=== PATIENT | female | born 1990 | race Caucasian/White ===

== ENCOUNTER 2017-02-10 12:41 | Inpatient (IN) | payer MEDICAID, OTHER ==
[2017-02-10] VITALS (10 sets, daily range): BP systolic 81–111; BP diastolic 23–67
[~2017-02-10] VITALS: Ht 170.2 cm; Wt 75.4 kg
[~2017-02-10 12:41] MED LIST: GEODON; LAMOTRIGINE; MELOXICAM; SEROQUEL; TOPIRAMATE
[2017-02-10] MEDS: LORAZEPAM 2MG/ML CPJ IV PRN ×2 (13:55→14:39)
[2017-02-10 14:34] LABS: BASOPHILS % 0.6 % (0.0-2.0); EOSINOPHILS % 0.7 % (0.0-5.0); HEMATOCRIT. 30.7 % (36.0-48.0); HEMOGLOBIN. 10.2 g/dL (12.0-16.0); LYMPHOCYTES % 31.6 % (20.0-50.0); MEAN CORPUSCULAR HEMOGLOBIN 32.1 pg (28.0-32.0); MEAN CORPUSCULAR VOLUME 96.2 fL (81.0-99.0); MEAN PLATELET VOLUME 10.9 fl (7.4-10.4); MONOCYTES % 9.2 % (2.0-8.0); NEUTROPHILS % 57.9 % (40.0-76.0); PLATELET 152 x1000/uL (130-400); RED BLOOD CELL COUNT 3.19 mill/uL (4.2-5.4); RED CELL DISTRIBUTION WIDTH 13.3 % (11.6-14.6)
[2017-02-10 14:38] LABS: CHLORIDE 109 mEq/L (98-107)
[2017-02-10 14:54] LABS: CARBON DIOXIDE 24 mEq/L (21-32); ETHANOL BLOOD < 10 mg/dL
[2017-02-10] MEDS ORDERED: LEVETIRACETAM 500MG PREMIX 100 ML IV ONE (15:00)
[2017-02-10] MEDS ORDERED: GUAIFENESIN 200MG/10ML SUGAR FREE UDC PO PRN (18:15)
[2017-02-10] MEDS ORDERED: ACETAMINOPHEN 325MG TABLET PO PRN (18:15)
[2017-02-10] MEDS ORDERED: ONDANSETRON HCL 4MG/2ML VIAL IV PRN (18:15)
[2017-02-10] MEDS ORDERED: CLONIDINE 0.1MG TABLET PO PRN (18:15)
[2017-02-10] MEDS ORDERED: IPRATROPIUM/ALBUTEROL 0.5-3(2.5)MG/3ML NEB INH PRN (18:15)
[2017-02-10] MEDS ORDERED: ACETAMINOPHEN 650MG SUPP PR PRN (18:15)
[2017-02-10] MEDS ORDERED: HYDROCODONE/ACETAMINOPHEN 5/325MG TABLET PO PRN (18:15)
[2017-02-10] MEDS ORDERED: LORAZEPAM 2MG/ML CPJ IV PRN (18:15)
[2017-02-10] MEDS ORDERED: DIPHENHYDRAMINE 50MG/ML VIAL IV PRN (18:15)
[2017-02-10] MEDS ORDERED: MAGNESIUM/ALUMINUM HYDROXIDE/SIMETHICONE 30ML UDC PO PRN (18:15)
[2017-02-10] MEDS ORDERED: ACETAMINOPHEN 650MG/20.3ML UDC GT PRN (18:15)
[2017-02-10] MEDS ORDERED: NA PHOS,M-B/NA PHOS,DI-BA ENEMA 118ML PR PRN (18:15)
[2017-02-10] MEDS ORDERED: DOCUSATE SODIUM 100MG CAPSULE PO PRN (18:15)
[2017-02-10] MEDS: SODIUM CHLORIDE 0.9% 1,000 ML IV SCH (19:30)
[2017-02-10 20:52] LABS: BG BASE EXCESS -2.1 mmol/L (-2.0-2.0); BG CARBOXYHEMOGLOBIN 0.1 % (0.5-1.5); BG DEOXYHEMOGLOBIN 4.5 % (0.0-5.0); BG FRACTION INSPIRED OXYGEN 21; BG HCO3 ACT 21.9 mmol/L (22.0-26.0); BG METHEMOGLOBIN 0.3 % (0.0-1.5); BG OXYGEN SATURATION 95.5 % (92.0-98.5); BG OXYHEMOGLOBIN 95.1 % (94.0-97.0); BG PCO2 34.9 mmHg (35.0-45.0); BG PH 7.416 (7.350-7.450); BG PO2 87.1 mmHg (75.0-100.0); BG SAMPLE SITE RIGHT RADIAL; BG TOTAL HEMOGLOBIN 10.7 g/dL (12.0-18.0); BG VENT MODE ROOM AIR
[2017-02-10] MEDS: LEVETIRACETAM 500 MG in SODIUM CHLORIDE 0.9% 100 ML IV SCH (21:12)
[2017-02-10] MEDS: SODIUM CHLORIDE 0.9% INJ 3ML FLUSH IVF SCH (22:00)
[2017-02-10 22:12] LABS: CREATINE KINASE 42 IU/L (26-192); TROPONIN I < 0.02 ng/mL (0.00-0.04)
[2017-02-10] MEDS ORDERED: DIVA-18 PO (22:36)
[2017-02-10] MEDS ORDERED: TH50 GT (22:36)
[2017-02-10] MEDS ORDERED: SERT50TA PO (22:36)
[2017-02-10] MEDS ORDERED: TOPA25 PO (22:36)
[2017-02-10] MEDS ORDERED: BENZ1TAB7 PO (22:36)
[2017-02-10] MEDS ORDERED: CHLO100T25 GT (22:36)
[2017-02-10] MEDS ORDERED: GUAN1TAB PO (22:36)
[2017-02-10] MEDS ORDERED: KEPP500 PO ×2 (22:36)
[2017-02-10] MEDS ORDERED: TRAZ150T79 PO (22:36)
[2017-02-11] VITALS (46 sets, daily range): BP systolic 86–133; BP diastolic 47–96
[2017-02-11] MEDS: SODIUM CHLORIDE 0.9% INJ 3ML FLUSH IVF SCH ×3 (06:00→21:39)
[2017-02-11 06:08] LABS: CREATINE KINASE 67 IU/L (26-192); TROPONIN I < 0.02 ng/mL (0.00-0.04)
[2017-02-11] MEDS: LEVETIRACETAM 500 MG in SODIUM CHLORIDE 0.9% 100 ML IV SCH (08:29)
[2017-02-11] MEDS ORDERED: CHLORPROMAZINE HCL 50 MG GT SCH (09:00)
[2017-02-11] MEDS ORDERED: DIVALPROEX SODIUM 500MG DR TABLET PO SCH (09:00)
[2017-02-11] MEDS: BENZTROPINE MESYLATE 1MG TABLET PO SCH ×2 (09:51→16:38)
[2017-02-11] MEDS: SODIUM CHLORIDE 0.9% 1,000 ML IV SCH ×2 (09:51→21:39)
[2017-02-11 11:00] LABS: HEMATOCRIT. 32.9 % (36.0-48.0); HEMOGLOBIN. 11.2 g/dL (12.0-16.0); MEAN CORPUSCULAR HEMOGLOBIN 32.3 pg (28.0-32.0); MEAN CORPUSCULAR VOLUME 94.8 fL (81.0-99.0); MEAN PLATELET VOLUME 10.6 fl (7.4-10.4); PLATELET 197 x1000/uL (130-400); RED BLOOD CELL COUNT 3.47 mill/uL (4.2-5.4); RED CELL DISTRIBUTION WIDTH 13.3 % (11.6-14.6)
[2017-02-11 11:16] LABS: CLARITY URINE CLEAR (CLEAR); COLOR URINE YELLOW (YELLOW); GLUCOSE URINE NEGATIVE (NEGATIVE); KETONES URINE NEGATIVE (NEGATIVE); LEUKOCYTE ESTERASE URINE NEGATIVE (NEGATIVE); NITRITE URINE NEGATIVE (NEGATIVE); OCCULT BLOOD URINE NEGATIVE (NEGATIVE); PH URINE 7.5 (4.5-8.0); PROTEIN URINE NEGATIVE (NEGATIVE); SPECIFIC GRAVITY URINE 1.013 (1.005-1.030); UROBILINOGEN URINE 0.2 E.U./dL (0.2-1.0)
[2017-02-11] MEDS: CHLORPROMAZINE HCL 25 MG TABLET GT SCH ×3 (11:26→23:31)
[2017-02-11 11:42] LABS: CARBON DIOXIDE 23 mEq/L (21-32); CHLORIDE 109 mEq/L (98-107)
[2017-02-11 11:50] LABS: *AMPHETAMINES SCREEN URINE NEGATIVE (NEGATIVE); *BARBITURATES SCREEN URINE NEGATIVE (NEGATIVE); *COCAINE SCREEN URINE NEGATIVE (NEGATIVE); CANNABINOID URINE SCREEN NEGATIVE (NEGATIVE); METHADONE URINE SCREEN NEGATIVE (NEGATIVE); OPIATES URINE SCREEN NEGATIVE (NEGATIVE); PHENCYCLIDINE URINE SCREEN NEGATIVE (NEGATIVE)
[2017-02-11 12:01] LABS: PLATELET ESTIMATE NORMAL
[2017-02-11 12:19] LABS: *BENZODIAZEPINES SCREEN URINE PRESUMTIVE POSITIVE (NEGATIVE)
[2017-02-11] MEDS: LORAZEPAM 2MG/ML CPJ IV PRN (13:19)
[2017-02-11] MEDS: LAMOTRIGINE 25MG TABLET PO SCH (16:38)
[2017-02-11 19:56] LABS: HCG SCREEN NEGATIVE
[2017-02-11] MEDS ORDERED: CHLORPROMAZINE HCL 100 MG GT SCH (21:00)
[2017-02-11] MEDS ORDERED: LEVETIRACETAM 500MG TABLET PO SCH (21:00)
[2017-02-11] MEDS ORDERED: TOPIRAMATE 25MG TABLET PO SCH (21:00)
[2017-02-11] MEDS: LEVETIRACETAM 500MG TABLET PO SCH (21:38)
[2017-02-12] VITALS (33 sets, daily range): BP systolic 92–140; BP diastolic 42–123
[2017-02-12] MEDS: GUANFACINE HCL 1MG TABLET PO SCH (06:30)
[2017-02-12] MEDS ORDERED: LEVETIRACETAM 500MG TABLET PO SCH (06:30)
[2017-02-12] MEDS: SERTRALINE HCL 50MG TABLET PO SCH (06:54)
[2017-02-12] MEDS: BENZTROPINE MESYLATE 1MG TABLET PO SCH ×2 (09:37→17:23)
[2017-02-12] MEDS: CHLORPROMAZINE HCL 25 MG TABLET GT SCH ×3 (09:37→21:11)
[2017-02-12] MEDS: LEVETIRACETAM 500MG TABLET PO SCH ×2 (09:37→21:12)
[2017-02-12] MEDS: LAMOTRIGINE 25MG TABLET PO SCH (09:37)
[2017-02-12] MEDS: SODIUM CHLORIDE 0.9% 1,000 ML IV SCH (12:23)
[2017-02-12] MEDS: SODIUM CHLORIDE 0.9% INJ 3ML FLUSH IVF SCH ×2 (14:00→21:12)
[2017-02-13] VITALS (37 sets, daily range): BP systolic 86–148; BP diastolic 46–98
[2017-02-13] MEDS: SODIUM CHLORIDE 0.9% 1,000 ML IV SCH (01:33)
[2017-02-13] MEDS: SODIUM CHLORIDE 0.9% INJ 3ML FLUSH IVF SCH ×3 (06:00→22:34)
[2017-02-13] MEDS: GUANFACINE HCL 1MG TABLET PO SCH (06:30)
[2017-02-13] MEDS: SERTRALINE HCL 50MG TABLET PO SCH (06:53)
[2017-02-13 07:26] LABS: CARBON DIOXIDE 23 mEq/L (21-32); CHLORIDE 112 mEq/L (98-107)
[2017-02-13] MEDS ORDERED: NA PHOS,M-B/NA PHOS,DI-BA ENEMA 118ML PR SCH (07:30)
[2017-02-13 07:40] LABS: BASOPHILS % 0.3 % (0.0-2.0); EOSINOPHILS % 1.1 % (0.0-5.0); HEMATOCRIT. 30.4 % (36.0-48.0); HEMOGLOBIN. 10.2 g/dL (12.0-16.0); LYMPHOCYTES % 36.9 % (20.0-50.0); MEAN CORPUSCULAR HEMOGLOBIN 32.4 pg (28.0-32.0); MEAN PLATELET VOLUME 10.9 fl (7.4-10.4); MONOCYTES % 10.6 % (2.0-8.0); NEUTROPHILS % 51.1 % (40.0-76.0); PLATELET 183 x1000/uL (130-400); RED BLOOD CELL COUNT 3.13 mill/uL (4.2-5.4); RED CELL DISTRIBUTION WIDTH 13.6 % (11.6-14.6)
[2017-02-13] MEDS: CHLORPROMAZINE HCL 25 MG TABLET GT SCH ×3 (09:30→21:01)
[2017-02-13] MEDS: LEVETIRACETAM 500MG TABLET PO SCH ×2 (09:30→21:01)
[2017-02-13] MEDS: LAMOTRIGINE 25MG TABLET PO SCH (09:30)
[2017-02-13] MEDS: BENZTROPINE MESYLATE 1MG TABLET PO SCH ×2 (09:30→16:29)
[2017-02-13] MEDS ORDERED: DIVALPROEX SODIUM 500MG ER TABLET PO SCH (17:00)
[2017-02-13] MEDS ORDERED: MIDODRINE HCL 2.5MG TABLET PO SCH (21:15)
== END 2017-02-13 23:56 | disposition short-term general hospital (02) | DRG 53 ==
LOC: ER 13:06 → 6WST 15:07 → ENRESERV 15:44 → MICUNO 18:37
PROVIDERS: ADMIT Family Medicine; ATTEND Family Medicine
DX: G40.901 Epilepsy, unspecified, not intractable, with status epilepticus (principal); E88.09 Other disorders of plasma-protein metabolism, not elsewhere classified; M54.5 Low back pain; D63.8 Anemia in other chronic diseases classified elsewhere; F79 Unspecified intellectual disabilities; G89.29 Other chronic pain; Z88.0 Allergy status to penicillin; Z79.899 Other long term (current) drug therapy
CPT/HCPCS: 36415; 36600; 70450; 72100; 80053; 80165; 80185; 80305; 81003; 81025; 82375; 82542; 82550; 82805; 84484; 84703; 85025; 96365; 96375; 97163; 99285; A6261; G0482; J1953; J2060; J7030; J7050; Q0161

== ENCOUNTER 2018-04-22 15:11 | Inpatient (IN) | payer MEDICAID ==
[~2018-04-22] VITALS: Ht 152.4 cm; Wt 54.9 kg
[~2018-04-22 15:11] MED LIST changes: +BENZ1TAB7 PO; +CHLO100T25 GT; +DIVA-18 PO; +GUAN1TAB PO; +KEPP500 PO; +SERT50TA PO; +TH50 GT; +TOPA25 PO; +TRAZ150T79 PO
[2018-04-22] MEDS ORDERED: SODIUM CHLORIDE 0.9% 1,000 ML IV ONE ×2 (15:51→18:30)
[2018-04-22] MEDS ORDERED: LORAZEPAM 2MG/ML CPJ IV ONE (16:15)
[2018-04-22] MEDS ORDERED: LORAZEPAM 2MG/ML CPJ ONE (16:19)
[2018-04-22 16:47] LABS: BASOPHILS % 0.8 % (0.0-2.0); HEMATOCRIT. 32.9 % (36.0-48.0); HEMOGLOBIN. 10.6 g/dL (12.0-16.0); LYMPHOCYTES % 21.9 % (20.0-50.0); MEAN CORPUSCULAR HEMOGLOBIN 28.3 pg (28.0-32.0); MEAN CORPUSCULAR VOLUME 87.7 fL (81.0-99.0); MEAN PLATELET VOLUME 11.7 fl (7.4-10.4); MONOCYTES % 5.6 % (2.0-8.0); NEUTROPHILS % 69.7 % (40.0-76.0); PLATELET 303 x1000/uL (130-400); RED BLOOD CELL COUNT 3.75 mill/uL (4.2-5.4); RED CELL DISTRIBUTION WIDTH 15.3 % (11.6-14.6)
[2018-04-22 16:52] LABS: CHLORIDE 111 mEq/L (98-107)
[2018-04-22 18:02] LABS: CLARITY URINE CLEAR (CLEAR); COLOR URINE YELLOW (YELLOW); KETONES URINE NEGATIVE (NEGATIVE); LEUKOCYTE ESTERASE URINE NEGATIVE (NEGATIVE); NITRITE URINE NEGATIVE (NEGATIVE); OCCULT BLOOD URINE 2+ (NEGATIVE); PROTEIN URINE NEGATIVE (NEGATIVE); SPECIFIC GRAVITY URINE 1.018 (1.005-1.030); UROBILINOGEN URINE 0.2 E.U./dL (0.2-1.0)
[2018-04-22] MEDS ORDERED: KETOROLAC 15MG/ML VIAL IV ONE (20:00)
[2018-04-22 21:00] VITALS: BP 103/50
[2018-04-22 23:33] VITALS: BP 80/39
[2018-04-23] VITALS: BP 77/39
[2018-04-23] MEDS ORDERED: TRAZODONE HCL 50MG TABLET PO PRN (00:45)
[2018-04-23] MEDS ORDERED: ABIL10 PO (01:14)
[2018-04-23] MEDS ORDERED: CLONAZEPAM 0.5MG TABLET PO PRN (01:45)
[2018-04-23] MEDS: SODIUM CHLORIDE 0.9% 1,000 ML IV SCH ×3 (02:05→21:51)
[2018-04-23] MEDS ORDERED: PRAZ2CAP2 PO (02:46)
[2018-04-23] MEDS ORDERED: TOPI200T15 PO (02:46)
[2018-04-23] MEDS ORDERED: LEVE10006 PO (02:46)
[2018-04-23] MEDS ORDERED: BECL10.62 IH (02:46)
[2018-04-23] MEDS ORDERED: SERT-112 PO (02:46)
[2018-04-23] MEDS ORDERED: MIDO5TAB PO (02:46)
[2018-04-23] MEDS ORDERED: FAMO20TA8 PO (02:46)
[2018-04-23] MEDS ORDERED: CLON0.5T12 PO (02:46)
[2018-04-23] MEDS ORDERED: QUET100T33 PO (02:46)
[2018-04-23] MEDS ORDERED: TRAZ-212 PO (02:46)
[2018-04-23] MEDS ORDERED: BUSP10TA3 PO (02:46)
[2018-04-23] MEDS ORDERED: LITH600C PO (02:46)
[2018-04-23 04:00] VITALS: BP 90/40
[2018-04-23] MEDS ORDERED: LORAZEPAM 2MG/ML CPJ IV PRN (04:00)
[2018-04-23 08:00] VITALS: BP 107/54
[2018-04-23] MEDS ORDERED: LEVETIRACETAM 500MG TABLET PO SCH (09:00)
[2018-04-23] MEDS ORDERED: INFLUENZA VIRUS VACCINE(AFLURIA) 0.5ML SYR IM ONE (10:00)
[2018-04-23] MEDS: BENZTROPINE MESYLATE 1MG TABLET PO SCH ×2 (10:49→18:29)
[2018-04-23] MEDS: SERTRALINE HCL 100MG TABLET PO SCH (10:49)
[2018-04-23] MEDS: BUSPIRONE HCL 10MG TABLET PO SCH ×3 (10:49→18:29)
[2018-04-23] MEDS: FAMOTIDINE 20MG TABLET PO SCH ×2 (10:49→18:28)
[2018-04-23] MEDS: MIDODRINE HCL 5MG TABLET PO SCH ×2 (10:50→18:28)
[2018-04-23] MEDS: TOPIRAMATE 100MG TABLET PO SCH ×2 (10:51→18:28)
[2018-04-23] MEDS ORDERED: LEVETIRACETAM 500 MG in SODIUM CHLORIDE 0.9% 100 ML IV SCH (11:30)
[2018-04-23 12:00] VITALS: BP 113/61
[2018-04-23 16:00] VITALS: BP 106/56
[2018-04-23 20:00] VITALS: BP 108/52
[2018-04-23] MEDS: LORAZEPAM 2MG/ML CPJ IV PRN (20:04)
[2018-04-23] MEDS: LEVETIRACETAM 1,500 MG in SODIUM CHLORIDE 0.9% 100 ML IV SCH (20:50)
[2018-04-23] MEDS ORDERED: NON FORMULARY PATIENT HOME MED EA PO SCH (21:00)
[2018-04-23] MEDS ORDERED: LITHIUM CARBONATE 150 MG CAPSULE PO SCH (21:00)
[2018-04-23] MEDS ORDERED: ARIPIPRAZOLE 5MG TABLET PO SCH (21:00)
[2018-04-23] MEDS ORDERED: QUETIAPINE FUMARATE 100MG TABLET PO SCH (21:00)
[2018-04-23] MEDS: ACETAMINOPHEN 325MG TABLET PO PRN (21:51)
[2018-04-24] VITALS (7 sets, daily range): BP systolic 91–114; BP diastolic 37–67
[2018-04-24 06:24] LABS: CHLORIDE 116 mEq/L (98-107)
[2018-04-24 06:29] LABS: BASOPHILS % 0.6 % (0.0-2.0); EOSINOPHILS % 2.2 % (0.0-5.0); HEMATOCRIT. 30.7 % (36.0-48.0); HEMOGLOBIN. 10.1 g/dL (12.0-16.0); LYMPHOCYTES % 27.6 % (20.0-50.0); MEAN CORPUSCULAR HEMOGLOBIN 28.8 pg (28.0-32.0); MEAN CORPUSCULAR VOLUME 87.4 fL (81.0-99.0); MEAN PLATELET VOLUME 11.3 fl (7.4-10.4); MONOCYTES % 8.9 % (2.0-8.0); NEUTROPHILS % 60.7 % (40.0-76.0); PLATELET 251 x1000/uL (130-400); RED BLOOD CELL COUNT 3.51 mill/uL (4.2-5.4); RED CELL DISTRIBUTION WIDTH 15.3 % (11.6-14.6)
[2018-04-24] MEDS: LORAZEPAM 2MG/ML CPJ IV PRN (06:42)
[2018-04-24] MEDS: SODIUM CHLORIDE 0.9% 1,000 ML IV SCH ×2 (08:30→18:30)
[2018-04-24] MEDS: SERTRALINE HCL 100MG TABLET PO SCH (09:00)
[2018-04-24] MEDS: BENZTROPINE MESYLATE 1MG TABLET PO SCH ×2 (09:00→17:36)
[2018-04-24] MEDS: TOPIRAMATE 100MG TABLET PO SCH ×2 (09:00→17:36)
[2018-04-24] MEDS: LEVETIRACETAM 1,500 MG in SODIUM CHLORIDE 0.9% 100 ML IV SCH (09:00)
[2018-04-24] MEDS: MIDODRINE HCL 5MG TABLET PO SCH ×2 (09:00→17:36)
[2018-04-24] MEDS: FAMOTIDINE 20MG TABLET PO SCH ×2 (09:00→17:36)
[2018-04-24] MEDS: BUSPIRONE HCL 10MG TABLET PO SCH ×3 (09:00→17:38)
[2018-04-24] MEDS ORDERED: MIDODRINE HCL 2.5MG TABLET PO SCH (10:00)
[2018-04-24] MEDS: ACETAMINOPHEN 325MG TABLET PO PRN (18:17)
== END 2018-04-24 21:15 | disposition short-term general hospital (02) | DRG 53 ==
LOC: ER 15:11 → 5WST 18:55 → ENRESERV 20:07
PROVIDERS: ADMIT Internal Medicine; ATTEND Internal Medicine
DX: G40.419 Other generalized epilepsy and epileptic syndromes, intractable, without status epilepticus (principal); E87.8 Other disorders of electrolyte and fluid balance, not elsewhere classified; G80.9 Cerebral palsy, unspecified; F79 Unspecified intellectual disabilities; D64.9 Anemia, unspecified; Z88.0 Allergy status to penicillin; Z79.899 Other long term (current) drug therapy
CPT/HCPCS: 36415; 71045; 80048; 80178; 82542; 96361; 96374; 96375; 99285; C1893; J1885; J1953; J2060; J7030; J7050

== ENCOUNTER 2018-05-01 11:30 | Emergency (ER) | payer MEDICAID ==
[~2018-05-01] VITALS: Ht 162.6 cm; Wt 55.0 kg
[~2018-05-01 11:30] MED LIST changes: +ABIL10 PO; +BECL10.62 IH; +BUSP10TA3 PO; -CHLO100T25 GT; +CLON0.5T12 PO; -DIVA-18 PO; +FAMO20TA8 PO; -GEODON; -KEPP500 PO; -LAMOTRIGINE; +LEVE10006 PO; +LITH600C PO; -MELOXICAM; +MIDO5TAB PO; +PRAZ2CAP2 PO; +QUET100T33 PO; -SEROQUEL; +SERT-112 PO; -SERT50TA PO; -TH50 GT; -TOPA25 PO; +TOPI200T15 PO; -TOPIRAMATE; +TRAZ-212 PO; -TRAZ150T79 PO
[2018-05-01] MEDS ORDERED: LEVETIRACETAM 1000MG/100ML 100 ML IV ONE (12:00)
[2018-05-01 12:28] LABS: BASOPHILS % 0.4 % (0.0-2.0); EOSINOPHILS % 2.2 % (0.0-5.0); HEMATOCRIT. 36.3 % (36.0-48.0); LYMPHOCYTES % 23.8 % (20.0-50.0); MEAN CORPUSCULAR HEMOGLOBIN 28.5 pg (28.0-32.0); MEAN CORPUSCULAR VOLUME 86.3 fL (81.0-99.0); MEAN PLATELET VOLUME 10.6 fl (7.4-10.4); MONOCYTES % 5.5 % (2.0-8.0); NEUTROPHILS % 68.1 % (40.0-76.0); PLATELET 301 x1000/uL (130-400); RED BLOOD CELL COUNT 4.21 mill/uL (4.2-5.4); RED CELL DISTRIBUTION WIDTH 14.5 % (11.6-14.6)
[2018-05-01 12:34] LABS: CHLORIDE 107 mEq/L (98-107)
[2018-05-01 12:42] LABS: ETHANOL BLOOD < 10 mg/dL
[2018-05-01 12:46] LABS: CLARITY URINE CLOUDY (CLEAR); COLOR URINE YELLOW (YELLOW); KETONES URINE NEGATIVE (NEGATIVE); LEUKOCYTE ESTERASE URINE TRACE (NEGATIVE); NITRITE URINE NEGATIVE (NEGATIVE); OCCULT BLOOD URINE NEGATIVE (NEGATIVE); PROTEIN URINE NEGATIVE (NEGATIVE); SPECIFIC GRAVITY URINE 1.014 (1.005-1.030); UROBILINOGEN URINE 0.2 E.U./dL (0.2-1.0)
[2018-05-01 12:52] LABS: HCG SCREEN NEGATIVE
[2018-05-01 14:03] LABS: METHADONE URINE SCREEN NEGATIVE (NEGATIVE); OPIATES URINE SCREEN NEGATIVE (NEGATIVE)
[2018-05-01 14:05] LABS: *BARBITURATES SCREEN URINE NEGATIVE (NEGATIVE); PHENCYCLIDINE URINE SCREEN NEGATIVE (NEGATIVE)
[2018-05-01 14:10] LABS: CANNABINOID URINE SCREEN NEGATIVE (NEGATIVE)
[2018-05-01 14:18] LABS: *AMPHETAMINES SCREEN URINE NEGATIVE (NEGATIVE)
[2018-05-01 14:20] LABS: *COCAINE SCREEN URINE NEGATIVE (NEGATIVE)
[2018-05-01 14:25] LABS: *BENZODIAZEPINES SCREEN URINE PRESUMTIVE POSITIVE (NEGATIVE)
[2018-05-01 15:06] VITALS: BP 108/62
== END 2018-05-01 15:32 | disposition home or self-care (01) ==
LOC: ER 11:45
DX: R56.9 Unspecified convulsions (principal); Z79.899 Other long term (current) drug therapy; Z88.0 Allergy status to penicillin
CPT/HCPCS: 36415; 80053; 80305; 81003; 82962; 84703; 85025; 96365; 99283; G0482; J1953; C1893

== ENCOUNTER 2018-05-20 16:16 | Emergency (ER) | payer MEDICAID ==
[~2018-05-20] VITALS: Ht 162.6 cm; Wt 60.0 kg
[2018-05-20] MEDS ORDERED: SODIUM CHLORIDE 0.9% 1,000 ML IV ONE (16:33)
[2018-05-20 17:14] LABS: BASOPHILS % 0.8 % (0.0-2.0); EOSINOPHILS % 3.1 % (0.0-5.0); HEMATOCRIT. 31.5 % (36.0-48.0); HEMOGLOBIN. 10.3 g/dL (12.0-16.0); LYMPHOCYTES % 27.4 % (20.0-50.0); MEAN CORPUSCULAR HEMOGLOBIN 28.1 pg (28.0-32.0); MEAN CORPUSCULAR VOLUME 86.5 fL (81.0-99.0); MEAN PLATELET VOLUME 9.8 fl (7.4-10.4); MONOCYTES % 7.2 % (2.0-8.0); NEUTROPHILS % 61.5 % (40.0-76.0); PLATELET 312 x1000/uL (130-400); RED BLOOD CELL COUNT 3.64 mill/uL (4.2-5.4); RED CELL DISTRIBUTION WIDTH 14.8 % (11.6-14.6)
[2018-05-20 17:21] LABS: CHLORIDE 112 mEq/L (98-107)
[2018-05-20 18:35] LABS: CLARITY URINE CLEAR (CLEAR); COLOR URINE YELLOW (YELLOW); KETONES URINE NEGATIVE (NEGATIVE); LEUKOCYTE ESTERASE URINE NEGATIVE (NEGATIVE); NITRITE URINE NEGATIVE (NEGATIVE); OCCULT BLOOD URINE NEGATIVE (NEGATIVE); PH URINE 6.5 (4.5-8.0); PROTEIN URINE NEGATIVE (NEGATIVE); SPECIFIC GRAVITY URINE 1.016 (1.005-1.030); UROBILINOGEN URINE 0.2 E.U./dL (0.2-1.0)
[2018-05-20] MEDS ORDERED: IBUPROFEN 600MG TABLET PO ONE (19:15)
[2018-05-21 08:18] VITALS: BP 103/59
== END 2018-05-21 08:29 | disposition home or self-care (01) ==
LOC: ER 16:16
DX: M79.18 Myalgia, other site (principal); R10.0 Acute abdomen
CPT/HCPCS: 36415; 80053; 81003; 81025; 83605; 85025; 85610; 87804; 99283; J7030

== ENCOUNTER 2022-03-03 09:00 | Emergency (ER) | payer MEDICAID ==
[~2022-03-03] VITALS: Ht 160 cm; Wt 72.0 kg
[~2022-03-03 09:00] MED LIST changes: -CLON0.5T12 PO; +CLON0.5T4 PO; -MIDO5TAB PO; +MIDO5TAB4 PO; -QUET100T33 PO; +QUET100T34 PO; -TRAZ-212 PO; +TRAZ-251 PO
[2022-03-03] MEDS ORDERED: KETOROLAC 30MG/ML VIAL IV STA (09:19)
[2022-03-03] MEDS ORDERED: ONDANSETRON HCL 4MG/2ML INJ IV STA (09:19)
[2022-03-03 10:07] LABS: HEMATOCRIT. 37.6 % (36.0-48.0); MEAN CORPUSCULAR VOLUME 97.3 fL (81.0-99.0); MEAN PLATELET VOLUME 10.8 fl (7.4-10.4); PLATELET 221 x1000/uL (130-400); RED BLOOD CELL COUNT 3.87 mill/uL (4.2-5.4)
[2022-03-03 10:15] LABS: CHLORIDE 112 mEq/L (98-107)
[2022-03-03 10:17] LABS: PROTHROMBIN TIME 10.5 sec (9.6-11.0)
[2022-03-03 10:23] LABS: ETHANOL BLOOD < 10 mg/dL
[2022-03-03 10:25] LABS: CLARITY URINE CLEAR (CLEAR); COLOR URINE ORANGE (YELLOW); KETONES URINE NEGATIVE (NEGATIVE); LEUKOCYTE ESTERASE URINE NEGATIVE (NEGATIVE); NITRITE URINE NEGATIVE (NEGATIVE); OCCULT BLOOD URINE NEGATIVE (NEGATIVE); PH URINE 6.5 (4.5-8.0); PROTEIN URINE NEGATIVE (NEGATIVE); SPECIFIC GRAVITY URINE 1.021 (1.005-1.030); UROBILINOGEN URINE 0.2 E.U./dL (0.2-1.0)
[2022-03-03 10:28] LABS: HCG SCREEN NEGATIVE
[2022-03-03 10:29] LABS: PLATELET ESTIMATE NORMAL
[2022-03-03] MEDS ORDERED: PIPERACILLIN/TAZ 3.375G PREMIX 50 ML IV ONE (10:45)
[2022-03-03] MEDS ORDERED: VANCOMYCIN 1G PREMIX 200 ML IV ONE (10:45)
[2022-03-03 10:48] LABS: *AMPHETAMINES SCREEN URINE NEGATIVE (NEGATIVE); *BARBITURATES SCREEN URINE NEGATIVE (NEGATIVE); *BENZODIAZEPINES SCREEN URINE NEGATIVE (NEGATIVE); *COCAINE SCREEN URINE NEGATIVE (NEGATIVE); CANNABINOID URINE SCREEN NEGATIVE (NEGATIVE); METHADONE URINE SCREEN NEGATIVE (NEGATIVE); OPIATES URINE SCREEN NEGATIVE (NEGATIVE); PHENCYCLIDINE URINE SCREEN NEGATIVE (NEGATIVE)
[2022-03-03] MEDS ORDERED: MORPHINE SULFATE 4 MG/ML CPJ (NOT FOR IM USE) IV ONE (12:30)
[2022-03-03] MEDS ORDERED: SODIUM CHLORIDE 0.9% 1,000 ML IV ONE (14:00)
[2022-03-03 14:55] VITALS: BP 108/60
== END 2022-03-03 15:16 | disposition short-term general hospital (02) ==
LOC: ER 09:00 → CANBEDREQ 13:30 → ER 15:16
DX: R10.84 Generalized abdominal pain (principal); I88.0 Nonspecific mesenteric lymphadenitis; F31.9 Bipolar disorder, unspecified; E11.9 Type 2 diabetes mellitus without complications; G40.909 Epilepsy, unspecified, not intractable, without status epilepticus; F99 Mental disorder, not otherwise specified; Z20.822 Contact with and (suspected) exposure to COVID-19; Z88.0 Allergy status to penicillin
CPT/HCPCS: 36415; 74176; 80053; 80305; 80320; 81003; 83605; 83690; 84703; 85025; 85610; 87040; 87426; 96365; 96367; 96375; 99285; C9803; J1885; J2405; J2543; J3370; J7030; G0480

== ENCOUNTER 2022-04-06 19:21 | Emergency (ER) | payer MEDICAID ==
[~2022-04-06] VITALS: Ht 167.6 cm; Wt 64.0 kg
[2022-04-06 20:33] LABS: HEMATOCRIT. 33.3 % (36.0-48.0); HEMOGLOBIN. 11.3 g/dL (12.0-16.0); MEAN CORPUSCULAR HEMOGLOBIN 31.9 pg (28.0-32.0); MEAN CORPUSCULAR VOLUME 94.1 fL (81.0-99.0); MEAN PLATELET VOLUME 10.3 fl (7.4-10.4); PLATELET 238 x1000/uL (130-400); RED BLOOD CELL COUNT 3.54 mill/uL (4.2-5.4); RED CELL DISTRIBUTION WIDTH 15.4 % (11.6-14.6)
[2022-04-06 20:41] LABS: CHLORIDE 106 mEq/L (98-107)
[2022-04-06 20:42] LABS: HCG SCREEN NEGATIVE
[2022-04-06 20:48] LABS: ETHANOL BLOOD < 10 mg/dL
[2022-04-06] MEDS ORDERED: TOPIRAMATE 25MG TABLET PO NR (21:00)
[2022-04-06 21:16] LABS: CLARITY URINE CLOUDY (CLEAR); COLOR URINE ORANGE (YELLOW); KETONES URINE NEGATIVE (NEGATIVE); LEUKOCYTE ESTERASE URINE 2+ (NEGATIVE); NITRITE URINE POSITIVE (NEGATIVE); OCCULT BLOOD URINE TRACE (NEGATIVE); PH URINE 5.5 (4.5-8.0); PROTEIN URINE TRACE (NEGATIVE); SPECIFIC GRAVITY URINE 1.028 (1.005-1.030); UROBILINOGEN URINE 0.2 E.U./dL (0.2-1.0)
[2022-04-06] MEDS ORDERED: NITR-87 MT (21:22)
[2022-04-06] MEDS ORDERED: NITROFURANTOIN 100MG M/M CAPSULE PO ONE (21:30)
[2022-04-06 21:43] LABS: *AMPHETAMINES SCREEN URINE NEGATIVE (NEGATIVE); *BARBITURATES SCREEN URINE NEGATIVE (NEGATIVE); *COCAINE SCREEN URINE NEGATIVE (NEGATIVE); CANNABINOID URINE SCREEN NEGATIVE (NEGATIVE); METHADONE URINE SCREEN NEGATIVE (NEGATIVE); OPIATES URINE SCREEN NEGATIVE (NEGATIVE); PHENCYCLIDINE URINE SCREEN NEGATIVE (NEGATIVE)
[2022-04-06 21:54] LABS: *BENZODIAZEPINES SCREEN URINE PRESUMTIVE POSITIVE (NEGATIVE)
[2022-04-06 22:03] LABS: PLATELET ESTIMATE NORMAL
[2022-04-06 23:30] VITALS: BP 95/56
== END 2022-04-07 00:15 | disposition home or self-care (01) ==
LOC: ER 19:31
DX: G40.909 Epilepsy, unspecified, not intractable, without status epilepticus (principal); N39.0 Urinary tract infection, site not specified; R74.01 Elevation of levels of liver transaminase levels; E11.9 Type 2 diabetes mellitus without complications; F31.9 Bipolar disorder, unspecified; Z88.0 Allergy status to penicillin
CPT/HCPCS: 36415; 80053; 80305; 80320; 81003; 82962; 84703; 85025; 93005; 99284; G0480

== ENCOUNTER 2022-04-07 14:06 | Emergency (ER) | payer MEDICAID ==
[~2022-04-07] VITALS: Ht 170.2 cm; Wt 75.0 kg
[~2022-04-07 14:06] MED LIST changes: +NITR-87 MT
[2022-04-07] MEDS ORDERED: ACETAMINOPHEN 325MG TABLET PO STA (14:17)
[2022-04-07] MEDS ORDERED: LEVETIRACETAM 500MG PREMIX 100 ML IV ONE (14:30)
[2022-04-07] MEDS ORDERED: SODIUM CHLORIDE 0.9% 1,000 ML IV ONE (14:30)
[2022-04-07 15:04] LABS: HCG SCREEN NEGATIVE
[2022-04-07 15:05] LABS: CHLORIDE 105 mEq/L (98-107)
[2022-04-07 15:06] LABS: BASOPHILS % 0.3 % (0.0-2.0); EOSINOPHILS % 0.7 % (0.0-5.0); HEMOGLOBIN. 12.1 g/dL (12.0-16.0); LYMPHOCYTES % 31.8 % (20.0-50.0); MEAN CORPUSCULAR HEMOGLOBIN 31.8 pg (28.0-32.0); MEAN CORPUSCULAR VOLUME 94.5 fL (81.0-99.0); MEAN PLATELET VOLUME 10.8 fl (7.4-10.4); MONOCYTES % 12.8 % (2.0-8.0); NEUTROPHILS % 54.4 % (40.0-76.0); PLATELET 242 x1000/uL (130-400); RED BLOOD CELL COUNT 3.81 mill/uL (4.2-5.4); RED CELL DISTRIBUTION WIDTH 15.4 % (11.6-14.6)
[2022-04-07 15:13] LABS: PARTIAL THROMBOPLASTIN TIME 24.8 sec (23.4-31.0); PROTHROMBIN TIME 10.9 sec (9.6-11.0)
[2022-04-07 15:38] LABS: ETHANOL BLOOD < 10 mg/dL
[2022-04-07] MEDS ORDERED: LEVOFLOXACIN 750MG PREMIX 150 ML IV ONE (16:45)
[2022-04-07 17:41] LABS: CLARITY URINE TURBID (CLEAR); COLOR URINE ORANGE (YELLOW); KETONES URINE NEGATIVE (NEGATIVE); LEUKOCYTE ESTERASE URINE TRACE (NEGATIVE); NITRITE URINE NEGATIVE (NEGATIVE); OCCULT BLOOD URINE TRACE (NEGATIVE); PH URINE 7.5 (4.5-8.0); PROTEIN URINE NEGATIVE (NEGATIVE); SPECIFIC GRAVITY URINE 1.012 (1.005-1.030); UROBILINOGEN URINE 0.2 E.U./dL (0.2-1.0)
[2022-04-07 17:53] VITALS: BP 103/58
[2022-04-07 17:56] LABS: *AMPHETAMINES SCREEN URINE NEGATIVE (NEGATIVE); *BARBITURATES SCREEN URINE NEGATIVE (NEGATIVE); *COCAINE SCREEN URINE NEGATIVE (NEGATIVE); CANNABINOID URINE SCREEN NEGATIVE (NEGATIVE); METHADONE URINE SCREEN NEGATIVE (NEGATIVE); OPIATES URINE SCREEN NEGATIVE (NEGATIVE); PHENCYCLIDINE URINE SCREEN NEGATIVE (NEGATIVE)
[2022-04-07 17:57] LABS: *BENZODIAZEPINES SCREEN URINE PRESUMTIVE POSITIVE (NEGATIVE)
== END 2022-04-07 20:04 | disposition short-term general hospital (02) ==
LOC: ER 14:06 → CANBEDREQ 17:24 → ER 20:04
DX: G40.909 Epilepsy, unspecified, not intractable, without status epilepticus (principal); S00.03XA Contusion of scalp, initial encounter; N39.0 Urinary tract infection, site not specified; R93.0 Abnormal findings on diagnostic imaging of skull and head, not elsewhere classified; E11.9 Type 2 diabetes mellitus without complications; F31.9 Bipolar disorder, unspecified; R94.31 Abnormal electrocardiogram [ECG] [EKG]; Z20.822 Contact with and (suspected) exposure to COVID-19; Z88.0 Allergy status to penicillin; W01.0XXA Fall on same level from slipping, tripping and stumbling without subsequent striking against object, initial encounter; Y93.89 Activity, other specified; Y92.018 Other place in single-family (private) house as the place of occurrence of the external cause
CPT/HCPCS: 36415; 70450; 71045; 80053; 80305; 80320; 81003; 82962; 84484; 84703; 85025; 85610; 85730; 87086; 87426; 93005; 96365; 96367; 99285; C9803; J1953; J1956; J7030; G0480

== ENCOUNTER 2022-04-12 15:21 | Emergency (ER) | payer MEDICAID ==
[~2022-04-12] VITALS: Ht 157.5 cm; Wt 64.0 kg
[2022-04-12] MEDS ORDERED: LEVETIRACETAM 1000MG PREMIX 100 ML IV ONE (16:00)
[2022-04-12 16:41] LABS: CHLORIDE 106 mEq/L (98-107)
[2022-04-12] MEDS ORDERED: SODIUM CHLORIDE 0.9% 1,000 ML IV ONE (16:45)
[2022-04-12 16:54] LABS: CLARITY URINE CLOUDY (CLEAR); COLOR URINE ORANGE (YELLOW); KETONES URINE NEGATIVE (NEGATIVE); LEUKOCYTE ESTERASE URINE 1+ (NEGATIVE); NITRITE URINE POSITIVE (NEGATIVE); OCCULT BLOOD URINE NEGATIVE (NEGATIVE); PH URINE 6.5 (4.5-8.0); PROTEIN URINE TRACE (NEGATIVE); SPECIFIC GRAVITY URINE 1.018 (1.005-1.030)
[2022-04-12 16:59] LABS: ETHANOL BLOOD < 10 mg/dL
[2022-04-12 17:23] LABS: *AMPHETAMINES SCREEN URINE NEGATIVE (NEGATIVE); *BARBITURATES SCREEN URINE NEGATIVE (NEGATIVE); *BENZODIAZEPINES SCREEN URINE NEGATIVE (NEGATIVE); *COCAINE SCREEN URINE NEGATIVE (NEGATIVE); CANNABINOID URINE SCREEN NEGATIVE (NEGATIVE); METHADONE URINE SCREEN NEGATIVE (NEGATIVE); OPIATES URINE SCREEN NEGATIVE (NEGATIVE); PHENCYCLIDINE URINE SCREEN NEGATIVE (NEGATIVE)
[2022-04-12] MEDS ORDERED: CEFTRIAXONE 1 G PREMIX 50 ML IV ONE (17:30)
[2022-04-12 18:20] LABS: BASOPHILS % 0.2 % (0.0-2.0); EOSINOPHILS % 0.9 % (0.0-5.0); MEAN CORPUSCULAR HEMOGLOBIN 31.7 pg (28.0-32.0); MEAN CORPUSCULAR VOLUME 94.9 fL (81.0-99.0); MEAN PLATELET VOLUME 10.8 fl (7.4-10.4); MONOCYTES % 10.4 % (2.0-8.0); NEUTROPHILS % 48.5 % (40.0-76.0); PLATELET 229 x1000/uL (130-400); RED BLOOD CELL COUNT 3.79 mill/uL (4.2-5.4); RED CELL DISTRIBUTION WIDTH 14.9 % (11.6-14.6)
[2022-04-12] MEDS ORDERED: CEFTRIAXONE 1 G PREMIX 50 ML IV NR (18:45)
[2022-04-12 18:54] LABS: HCG SCREEN NEGATIVE
[2022-04-12 19:30] VITALS: BP 104/52
== END 2022-04-12 21:00 | disposition short-term general hospital (02) ==
LOC: ER 15:21 → CANBEDREQ 17:58 → ER 21:00
DX: G40.909 Epilepsy, unspecified, not intractable, without status epilepticus (principal); N39.0 Urinary tract infection, site not specified; S01.21XA Laceration without foreign body of nose, initial encounter; E11.9 Type 2 diabetes mellitus without complications; Z88.0 Allergy status to penicillin; Z79.899 Other long term (current) drug therapy; Z98.890 Other specified postprocedural states; X58.XXXA Exposure to other specified factors, initial encounter; Y93.89 Activity, other specified; Y92.89 Other specified places as the place of occurrence of the external cause; Y99.9 Unspecified external cause status
CPT/HCPCS: 36415; 70450; 70486; 80053; 80165; 80305; 80320; 81003; 81025; 84703; 85025; 96365; 96366; 96367; 99285; J0696; J1953; J7030; G0480

== ENCOUNTER 2022-04-19 17:31 | Emergency (ER) | payer MEDICAID ==
[~2022-04-19] VITALS: Ht 167.6 cm; Wt 87.0 kg
[2022-04-19] MEDS ORDERED: LEVETIRACETAM 500MG PREMIX 100 ML IV ONE (19:00)
[2022-04-19] MEDS ORDERED: CLONAZEPAM 1MG TABLET PO ONE (19:00)
[2022-04-19 20:03] LABS: BASOPHILS % 0.3 % (0.0-2.0); EOSINOPHILS % 1.7 % (0.0-5.0); HEMATOCRIT. 32.2 % (36.0-48.0); HEMOGLOBIN. 10.7 g/dL (12.0-16.0); LYMPHOCYTES % 42.6 % (20.0-50.0); MEAN CORPUSCULAR HEMOGLOBIN 31.5 pg (28.0-32.0); MEAN CORPUSCULAR VOLUME 94.7 fL (81.0-99.0); MEAN PLATELET VOLUME 10.8 fl (7.4-10.4); MONOCYTES % 11.6 % (2.0-8.0); NEUTROPHILS % 43.8 % (40.0-76.0); PLATELET 235 x1000/uL (130-400); RED CELL DISTRIBUTION WIDTH 14.7 % (11.6-14.6)
[2022-04-19 20:05] LABS: CHLORIDE 108 mEq/L (98-107)
[2022-04-19] MEDS ORDERED: SODIUM CHLORIDE 0.9% 1,000 ML IV ONE (23:15)
[2022-04-20 08:24] VITALS: BP 125/45
== END 2022-04-19 22:16 | disposition home or self-care (01) ==
LOC: ER 17:31
DX: R56.9 Unspecified convulsions (principal); E11.9 Type 2 diabetes mellitus without complications; Z88.0 Allergy status to penicillin; Z79.899 Other long term (current) drug therapy; Z98.890 Other specified postprocedural states
CPT/HCPCS: 36415; 80048; 82962; 85025; 96361; 96365; 99285; J1953

== ENCOUNTER 2022-04-25 19:33 | Emergency (ER) | payer MEDICAID ==
[~2022-04-25] VITALS: Ht 167.6 cm; Wt 77.0 kg
[2022-04-25] MEDS ORDERED: ACETAMINOPHEN 325MG TABLET PO STA (22:20)
[2022-04-25 23:03] LABS: BASOPHILS % 0.4 % (0.0-2.0); EOSINOPHILS % 1.4 % (0.0-5.0); HEMATOCRIT. 34.3 % (36.0-48.0); HEMOGLOBIN. 11.2 g/dL (12.0-16.0); MEAN CORPUSCULAR HEMOGLOBIN 31.4 pg (28.0-32.0); MEAN CORPUSCULAR VOLUME 96.3 fL (81.0-99.0); MEAN PLATELET VOLUME 10.7 fl (7.4-10.4); MONOCYTES % 11.8 % (2.0-8.0); NEUTROPHILS % 38.4 % (40.0-76.0); PLATELET 220 x1000/uL (130-400); RED BLOOD CELL COUNT 3.57 mill/uL (4.2-5.4); RED CELL DISTRIBUTION WIDTH 15.1 % (11.6-14.6)
[2022-04-25 23:11] LABS: CHLORIDE 110 mEq/L (98-107)
[2022-04-25 23:22] LABS: ETHANOL BLOOD < 10 mg/dL
[2022-04-25] MEDS ORDERED: ACETAMINOPHEN 325MG TABLET PO NR (23:45)
[2022-04-26 02:08] LABS: CLARITY URINE CLOUDY (CLEAR); COLOR URINE ORANGE (YELLOW); KETONES URINE NEGATIVE (NEGATIVE); LEUKOCYTE ESTERASE URINE TRACE (NEGATIVE); NITRITE URINE NEGATIVE (NEGATIVE); OCCULT BLOOD URINE NEGATIVE (NEGATIVE); PH URINE 6.5 (4.5-8.0); PROTEIN URINE NEGATIVE (NEGATIVE); SPECIFIC GRAVITY URINE 1.021 (1.005-1.030)
[2022-04-26 04:19] LABS: *AMPHETAMINES SCREEN URINE NEGATIVE (NEGATIVE); *BARBITURATES SCREEN URINE NEGATIVE (NEGATIVE); *BENZODIAZEPINES SCREEN URINE NEGATIVE (NEGATIVE); *COCAINE SCREEN URINE NEGATIVE (NEGATIVE); CANNABINOID URINE SCREEN NEGATIVE (NEGATIVE); METHADONE URINE SCREEN NEGATIVE (NEGATIVE); OPIATES URINE SCREEN NEGATIVE (NEGATIVE); PHENCYCLIDINE URINE SCREEN NEGATIVE (NEGATIVE)
[2022-04-26 06:56] VITALS: BP 94/52
== END 2022-04-26 10:39 ==
LOC: ER 19:36
DX: S09.8XXA Other specified injuries of head, initial encounter (principal); W18.39XA Other fall on same level, initial encounter; Y93.89 Activity, other specified; Y92.89 Other specified places as the place of occurrence of the external cause; Y99.8 Other external cause status; R45.851 Suicidal ideations; F31.9 Bipolar disorder, unspecified; I95.9 Hypotension, unspecified; Z79.899 Other long term (current) drug therapy
CPT/HCPCS: 36415; 73502; 80053; 80305; 80307; 80320; 80329; 81003; 81025; 85025; 99285; G0480

== ENCOUNTER 2022-07-03 15:16 | Emergency (ER) | payer MEDICAID ==
[~2022-07-03] VITALS: Ht 162.6 cm; Wt 73.0 kg
[2022-07-03 15:48] VITALS: BP 108/86
[2022-07-03] MEDS ORDERED: ACETAMINOPHEN 325MG TABLET PO STA (16:49)
[2022-07-03] MEDS ORDERED: SODIUM CHLORIDE 0.9% 1,000 ML IV ONE (17:00)
[2022-07-03 17:35] LABS: CLARITY URINE CLEAR (CLEAR); COLOR URINE ORANGE (YELLOW); KETONES URINE NEGATIVE (NEGATIVE); LEUKOCYTE ESTERASE URINE 1+ (NEGATIVE); NITRITE URINE NEGATIVE (NEGATIVE); OCCULT BLOOD URINE TRACE (NEGATIVE); PROTEIN URINE NEGATIVE (NEGATIVE); SPECIFIC GRAVITY URINE 1.017 (1.005-1.030); UROBILINOGEN URINE 0.2 E.U./dL (0.2-1.0)
[2022-07-03 18:45] LABS: BASOPHILS % 0.3 % (0.0-2.0); EOSINOPHILS % 0.7 % (0.0-5.0); HEMATOCRIT. 33.6 % (36.0-48.0); HEMOGLOBIN. 11.1 g/dL (12.0-16.0); LYMPHOCYTES % 39.2 % (20.0-50.0); MEAN CORPUSCULAR HEMOGLOBIN 31.5 pg (28.0-32.0); MEAN CORPUSCULAR VOLUME 95.2 fL (81.0-99.0); MEAN PLATELET VOLUME 10.5 fl (7.4-10.4); NEUTROPHILS % 46.8 % (40.0-76.0); PLATELET 263 x1000/uL (130-400); RED BLOOD CELL COUNT 3.53 mill/uL (4.2-5.4)
[2022-07-03 18:49] LABS: CHLORIDE 114 mEq/L (98-107)
[2022-07-03 19:01] LABS: B-HCG QUANTITATIVE < 1 mIU/mL (<3)
[2022-07-03] MEDS ORDERED: IBUP-2028 MT (19:52)
[2022-07-03] MEDS ORDERED: NITR-87 MT (19:52)
[2022-07-03] MEDS ORDERED: KETOROLAC 15MG/ML VIAL IV ONE (20:15)
[2022-07-03 23:56] LABS: UCG SCREEN NEGATIVE
== END 2022-07-03 23:39 | disposition home or self-care (01) ==
LOC: ER 15:16
DX: N39.0 Urinary tract infection, site not specified (principal); J45.909 Unspecified asthma, uncomplicated; Z88.0 Allergy status to penicillin; Z79.899 Other long term (current) drug therapy; Z98.890 Other specified postprocedural states; Z98.51 Tubal ligation status; Z86.59 Personal history of other mental and behavioral disorders; Z86.39 Personal history of other endocrine, nutritional and metabolic disease
CPT/HCPCS: 36415; 74176; 76830; 76856; 80053; 81003; 81025; 83690; 84702; 85025; 86850; 86900; 86901; 93005; 96361; 96374; 99285; J1885; J7030

== ENCOUNTER 2022-09-19 18:47 | Emergency (ER) | payer MEDICAID ==
[~2022-09-19] VITALS: Ht 162.6 cm; Wt 67.0 kg
[~2022-09-19 18:47] MED LIST changes: -BENZ1TAB7 PO; +BENZ1TAB78 PO; +IBUP-2028 MT
[2022-09-19 20:33] LABS: CHLORIDE 114 mEq/L (98-107)
[2022-09-19 20:40] LABS: ETHANOL BLOOD < 10 mg/dL
[2022-09-19 20:49] LABS: HCG SCREEN NEGATIVE
[2022-09-19 23:54] LABS: BASOPHILS % 0.6 % (0.0-2.0); EOSINOPHILS % 1.5 % (0.0-5.0); HEMATOCRIT. 33.4 % (36.0-48.0); HEMOGLOBIN. 11.2 g/dL (12.0-16.0); LYMPHOCYTES % 45.7 % (20.0-50.0); MEAN CORPUSCULAR VOLUME 95.7 fL (81.0-99.0); MEAN PLATELET VOLUME 10.9 fl (7.4-10.4); MONOCYTES % 11.5 % (2.0-8.0); NEUTROPHILS % 40.7 % (40.0-76.0); PLATELET 246 x1000/uL (130-400); RED BLOOD CELL COUNT 3.49 mill/uL (4.2-5.4); RED CELL DISTRIBUTION WIDTH 15.2 % (11.6-14.6)
[2022-09-20 03:12] LABS: CLARITY URINE CLOUDY (CLEAR); COLOR URINE ORANGE (YELLOW); KETONES URINE TRACE (NEGATIVE); LEUKOCYTE ESTERASE URINE TRACE (NEGATIVE); NITRITE URINE NEGATIVE (NEGATIVE); OCCULT BLOOD URINE NEGATIVE (NEGATIVE); PH URINE 6.5 (4.5-8.0); PROTEIN URINE TRACE (NEGATIVE); SPECIFIC GRAVITY URINE 1.024 (1.005-1.030)
[2022-09-20 03:25] LABS: *AMPHETAMINES SCREEN URINE NEGATIVE (NEGATIVE); *BARBITURATES SCREEN URINE NEGATIVE (NEGATIVE); *BENZODIAZEPINES SCREEN URINE NEGATIVE (NEGATIVE); *COCAINE SCREEN URINE NEGATIVE (NEGATIVE); CANNABINOID URINE SCREEN NEGATIVE (NEGATIVE); METHADONE URINE SCREEN NEGATIVE (NEGATIVE); OPIATES URINE SCREEN NEGATIVE (NEGATIVE); PHENCYCLIDINE URINE SCREEN NEGATIVE (NEGATIVE)
[2022-09-20] MEDS ORDERED: SODIUM CHLORIDE 0.9% 1000ML BAG (SEPSIS BOLUS) IV ONE (05:00)
[2022-09-20] MEDS ORDERED: SODIUM CHLORIDE 0.9% 1,000 ML IV ONE (06:45)
[2022-09-20] MEDS: DIVALPROEX SODIUM 250MG DR TABLET PO SCH ×2 (10:54→23:46)
[2022-09-20] MEDS: RISPERIDONE 1MG TABLET PO SCH (10:54)
[2022-09-20] MEDS: ARIPIPRAZOLE 5MG TABLET PO SCH (21:00)
[2022-09-20] MEDS: BENZTROPINE MESYLATE 1MG TABLET PO SCH (23:46)
[2022-09-21] MEDS ORDERED: SODIUM CHLORIDE 0.9% 1,000 ML IV ONE
[2022-09-21] MEDS: RISPERIDONE 1MG TABLET PO SCH (19:55)
[2022-09-21] MEDS: DIVALPROEX SODIUM 250MG DR TABLET PO SCH ×2 (19:55→20:11)
[2022-09-21] MEDS: BENZTROPINE MESYLATE 1MG TABLET PO SCH (21:23)
[2022-09-21] MEDS: ARIPIPRAZOLE 5MG TABLET PO SCH (21:23)
[2022-09-22] MEDS: DIVALPROEX SODIUM 250MG DR TABLET PO SCH (09:42)
[2022-09-22] MEDS: RISPERIDONE 1MG TABLET PO SCH (09:42)
[2022-09-22 11:31] VITALS: BP 106/71
== END 2022-09-22 11:42 ==
LOC: ER 18:47
DX: R45.851 Suicidal ideations (principal); F20.9 Schizophrenia, unspecified; F31.9 Bipolar disorder, unspecified; J45.909 Unspecified asthma, uncomplicated; I10 Essential (primary) hypertension; Z20.822 Contact with and (suspected) exposure to COVID-19
CPT/HCPCS: 36415; 80053; 80305; 80307; 80320; 80329; 81001; 81025; 82962; 83605; 84703; 85025; 87040; 87426; 96360; 96361; 99285; C9803; J7030; G0480

== ENCOUNTER 2022-12-26 00:57 | Emergency (ER) | payer MEDICAID ==
[~2022-12-26] VITALS: Ht 162.6 cm; Wt 693.0 kg
[2022-12-26 01:01] VITALS: BP 96/53; PULSE 72; RESP 18; TEMP 98; O2SAT 99
[2022-12-26] MEDS ORDERED: ONDANSETRON HCL 4MG/2ML INJ IV STA (02:39)
[2022-12-26] MEDS ORDERED: ACETAMINOPHEN 325MG TABLET PO STA (02:39)
[2022-12-26] MEDS ORDERED: SODIUM CHLORIDE 0.9% 1,000 ML IV ONE (02:45)
[2022-12-26 03:25] LABS: BASOPHILS % 0.4 % (0.0-2.0); EOSINOPHILS % 1.3 % (0.0-5.0); HEMATOCRIT. 34.5 % (36.0-48.0); HEMOGLOBIN. 11.5 g/dL (12.0-16.0); MEAN CORPUSCULAR HEMOGLOBIN 30.7 pg (28.0-32.0); MEAN CORPUSCULAR VOLUME 92.2 fL (81.0-99.0); MEAN PLATELET VOLUME 10.9 fl (7.4-10.4); MONOCYTES % 9.7 % (2.0-8.0); NEUTROPHILS % 35.6 % (40.0-76.0); PLATELET 245 x1000/uL (130-400); RED BLOOD CELL COUNT 3.74 mill/uL (4.2-5.4); RED CELL DISTRIBUTION WIDTH 15.6 % (11.6-14.6)
[2022-12-26 03:49] LABS: CHLORIDE 114 mEq/L (98-107)
[2022-12-26] MEDS ORDERED: AZITHROMYCIN 500 MG TABLET PO ONE (04:00)
[2022-12-26] MEDS ORDERED: ACET-2708 MT (04:16)
[2022-12-26] MEDS ORDERED: AZIT500T8 MT (04:16)
== END 2022-12-26 10:42 | disposition home or self-care (01) ==
LOC: ER 00:57
DX: J18.9 Pneumonia, unspecified organism (principal); J45.909 Unspecified asthma, uncomplicated; F31.9 Bipolar disorder, unspecified; R56.9 Unspecified convulsions; I95.9 Hypotension, unspecified; Z79.899 Other long term (current) drug therapy
CPT/HCPCS: 80048; 81025; 85025; 36415; 71045; 96360; 99284; J2405; J7030; Z7610 ×2; C1893